=== PATIENT | male | born 1935 | race Two or more races ===

== ENCOUNTER 2018-06-11 08:43 | Outpatient (CLI) | payer OTHER ==
[~2018-06-11 08:43] MED LIST: MILLIPRED DP5 M1 PO; NEURONTIN300 MG PO; PRILOSEC OTC20 MG; SINGULAIR 10MG10 MG PO; TAMS0.4C PO; ZOCOR20 MG
== END 2018-06-11 09:01 | disposition home or self-care (01) ==
LOC: NUCLEAR 08:43
DX: I50.9 Heart failure, unspecified (principal)
CPT/HCPCS: 78452; 93017; A9500; J0153